=== PATIENT | female | born 1980 ===

== ENCOUNTER → 2021-02-06 | Outpatient (REF) ==
--- NOTE | 2021-02-06 12:27 | REP ---
INDICATION: ARTRITIS. COMPARISON: None. TECHNIQUE: AP, lateral, swimmer's, and open-mouth views of the cervical spine FINDINGS: Alignment and lordosis maintained. No acute fracture/compression injury or subluxation. Mild endplate sclerosis and disc space narrowing at C4-5 and to a lesser extent C5-6. Remainder of the examination is age-appropriate. IMPRESSION: Minimal degenerative changes at C4-5 and C5-6. <Electronically signed by Floyd Watson > 02/06/21 [id number]
--- NOTE | 2021-02-06 12:32 | REP ---
INDICATION: ARTHRITIS. COMPARISON: None. TECHNIQUE: AP view of the pelvis with neutral and frog-lateral views of the right and left hip. FINDINGS: There is no evidence for acute fracture or dislocation. The pelvis is intact and normal/age-appropriate. The bilateral hip joints demonstrate mild relatively symmetric age-related changes including subtle increased sclerosis to the acetabular roof with very minimal joint space narrowing and subtle marginal spurring. No further overt osteoarthritic or inflammatory arthritic changes noted. Surrounding soft tissues are normal. 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 <Electronically signed by Floyd Watson > 02/06/21 [id number]
== END ==
LOC: M PLAIMG 11:02
PROVIDERS: ATTEND Internal Medicine
DX: M16.0 Bilateral primary osteoarthritis of hip (principal); M50.31 Other cervical disc degeneration, high cervical region